=== PATIENT | male | born 1955 | race Caucasian/White ===

== ENCOUNTER 2017-06-04 19:44 | Inpatient (IN) | payer BC ==
[~2017-06-04] VITALS: Ht 172.7 cm; Wt 105.6 kg
[2017-06-04 20:53] LABS: HEMATOCRIT 39.7 % (38.0-50.0); MCH 30.1 PG (29.0-34.0); MCHC 34.8 G/DL (30.0-36.0); MCV 86.5 FL (86-99); MEAN PLAT.VOLUME 9.2 uM^3 (9.0-12.4); PLATELET COUNT 156 K/uL (156-360); RBC DIS.WIDTH-CV 12.5 % (11.8-14.6); RBC DIS.WIDTH-SD 39.4 % (39-53); RED BLOOD COUNT 4.59 M/uL (4.00-5.50); WHITE BLOOD COUNT 18.7 K/uL (4.1-10.2)
[2017-06-04 21:12] LABS: CHLORIDE 110 mEq/L (99-109); POTASSIUM 3.9 mEq/L (3.7-5.4); SODIUM 141 mEq/L (136-147)
[2017-06-04 21:14] LABS: GLUCOSE 132 mg/dL (70-99)
[2017-06-04 21:15] LABS: ANION GAP 10 MEQ/L (2-14)
[2017-06-04 21:17] LABS: ALKALINE PHOSPHATASE 88 IU/L (3-129)
[2017-06-04 21:18] LABS: GFR ESTIMATE (CALCULATED) > 59 mL/min/
[2017-06-04 21:21] LABS: LIPASE 9 U/L (1.0-51.0)
[2017-06-04 21:55] LABS: UREA NITROGEN (BUN) 20 mg/dL (9-23)
[2017-06-04 21:56] LABS: ADD MIUA? YES; BILIRUBIN NEGATIVE; BLOOD SMALL; COLOR YELLOW ((YELLOW)); GLUCOSE (STRIP) NEGATIVE; KETONES NEGATIVE; LEUKOCYTES NEGATIVE; NITRITE NEGATIVE; PROTEIN (STRIP) NEGATIVE; SPECIFIC GRAVITY 1.018 (1.000-1.030); UROBILINOGEN 0.2 MG/DL (0.2-1.0)
[2017-06-04 21:59] LABS: BACTERIA NONE SEEN /HPF; EPITHELIAL CELLS NONE SEEN /HPF; MUCUS TRACE /LPF; UCUL ADDED? NO; WHITE BLOOD CELLS 0-5 /HPF (0-5)
[2017-06-04] MEDS ORDERED: ATORVASTATIN CA20 MG PO (23:17)
[2017-06-04] MEDS ORDERED: OMEPRAZOLE-BIC1 EAC1 PO (23:17)
[2017-06-04] MEDS ORDERED: DESLORATADINE5 MG PO (23:18)
[2017-06-04] MEDS ORDERED: GLUCOSAMINE &1 EAC1 PO (23:19)
[2017-06-04] MEDS ORDERED: FLAX SEED OIL1 EACH PO (23:19)
[2017-06-04] MEDS ORDERED: ADVIL200 MG PO (23:20)
[2017-06-04] MEDS ORDERED: LO-DOSE ASPIRIN81 M2 PO (23:20)
[2017-06-05 01:04] VITALS: BP 139/76
[2017-06-05 01:22] LABS: BAND NEUTROPHILS 1.7 % (0-8.0); LYMPHOCYTES 2.6 % (15.0-45.0); PLAT.SUFFICIENCY ADEQUATE; SEG.NEUTROPHILS 95.7 % (46.0-76.0)
[2017-06-05 06:10] LABS: EOSINOPHIL (%) 0.1 % (0-5); HEMATOCRIT 36.8 % (38.0-50.0); IMMATURE GRANULOCYTE (%) 0.9 % (0.0-0.7); IMMATURE GRANULOCYTE COUNT 0.2 K/uL; INSTRUMENT ABS NEUTROPHIL CT 16.2 K/uL; MCHC 35.3 G/DL (30.0-36.0); MCV 87.8 FL (86-99); MEAN PLAT.VOLUME 9.7 uM^3 (9.0-12.4); MONOCYTE (%) 4.9 % (3-12); MONOCYTE COUNT 0.9 K/uL (0-0.8); NEUTROPHIL (%) 88.3 % (45-76); NEUTROPHIL COUNT 16.2 K/uL (1.8-6.4); PLATELET COUNT 147 K/uL (156-360); RBC DIS.WIDTH-SD 41.6 % (39-53); RED BLOOD COUNT 4.19 M/uL (4.00-5.50); WHITE BLOOD COUNT 18.3 K/uL (4.1-10.2)
[2017-06-05 06:42] LABS: ANION GAP 6 MEQ/L (2-14); CHLORIDE 111 MEQ/L (99-109); GFR ESTIMATE (CALCULATED) > 59 mL/min/; GLUCOSE 102 mg/dL (70-99); SAMPLE HEMOLYSIS CHECK 0; SAMPLE ICTERIC CHECK 0; SAMPLE LIPEMIA CHECK 0; SODIUM 142 MEQ/L (136-147); UREA NITROGEN (BUN) 16 mg/dL (9-23)
[2017-06-05 07:30] VITALS: BP 130/68
[2017-06-05 09:30] VITALS: BP 134/76
[2017-06-05 16:39] VITALS: BP 153/80
[2017-06-05 19:05] VITALS: BP 144/92
[2017-06-06] VITALS (7 sets, daily range): BP systolic 138–157; BP diastolic 71–91
[2017-06-06 05:55] LABS: HEMATOCRIT 36.1 % (38.0-50.0); MCH 30.8 PG (29.0-34.0); MCHC 34.1 G/DL (30.0-36.0); MCV 90.5 FL (86-99); PLATELET COUNT 138 K/uL (156-360); RBC DIS.WIDTH-CV 13.1 % (11.8-14.6); RBC DIS.WIDTH-SD 43.8 % (39-53); RED BLOOD COUNT 3.99 M/uL (4.00-5.50); WHITE BLOOD COUNT 10.5 K/uL (4.1-10.2)
[2017-06-06 06:39] LABS: ANION GAP 10 MEQ/L (2-14); CHLORIDE 107 MEQ/L (99-109); GFR ESTIMATE (CALCULATED) > 59 mL/min/; GLUCOSE 115 mg/dL (70-99); POTASSIUM 4.3 MEQ/L (3.7-5.4); SAMPLE HEMOLYSIS CHECK 0; SAMPLE ICTERIC CHECK 0; SAMPLE LIPEMIA CHECK 0; SODIUM 138 MEQ/L (136-147); UREA NITROGEN (BUN) 17 mg/dL (9-23)
[2017-06-07 01:21] VITALS: BP 142/90
[2017-06-07 04:13] VITALS: BP 142/80
[2017-06-07 07:20] VITALS: BP 150/88
[2017-06-07 12:00] VITALS: BP 160/90
[2017-06-07 15:00] VITALS: BP 140/78
[2017-06-07 19:46] VITALS: BP 171/85
[2017-06-08 00:20] VITALS: BP 132/64
[2017-06-08 04:33] VITALS: BP 116/64
[2017-06-08 05:40] LABS: HEMATOCRIT 32.3 % (38.0-50.0); MCH 30.2 PG (29.0-34.0); MCHC 34.7 G/DL (30.0-36.0); MCV 87.1 FL (86-99); MEAN PLAT.VOLUME 10.2 uM^3 (9.0-12.4); PLATELET COUNT 183 K/uL (156-360); RBC DIS.WIDTH-CV 12.7 % (11.8-14.6); RBC DIS.WIDTH-SD 40.3 % (39-53); RED BLOOD COUNT 3.71 M/uL (4.00-5.50); WHITE BLOOD COUNT 12.8 K/uL (4.1-10.2)
[2017-06-08 05:57] LABS: ANION GAP 13 MEQ/L (2-14); CHLORIDE 106 MEQ/L (99-109); GFR ESTIMATE (CALCULATED) > 59 mL/min/; GLUCOSE 91 mg/dL (70-99); POTASSIUM 3.5 MEQ/L (3.7-5.4); SAMPLE HEMOLYSIS CHECK 0; SAMPLE ICTERIC CHECK 0; SAMPLE LIPEMIA CHECK 0; SODIUM 139 MEQ/L (136-147); UREA NITROGEN (BUN) 14 mg/dL (9-23)
[2017-06-08 08:00] VITALS: BP 153/92
[2017-06-08 12:00] VITALS: BP 162/92
[2017-06-08 16:12] VITALS: BP 140/83
[2017-06-08 20:05] VITALS: BP 169/90
[2017-06-09 00:19] VITALS: BP 139/84
[2017-06-09 05:05] LABS: MCH 29.7 PG (29.0-34.0); MCHC 34.1 G/DL (30.0-36.0); MCV 87.2 FL (86-99); MEAN PLAT.VOLUME 9.2 uM^3 (9.0-12.4); PLATELET COUNT 199 K/uL (156-360); RBC DIS.WIDTH-CV 12.8 % (11.8-14.6); RED BLOOD COUNT 3.67 M/uL (4.00-5.50); WHITE BLOOD COUNT 11.1 K/uL (4.1-10.2)
[2017-06-09 05:21] VITALS: BP 142/85
[2017-06-09 06:02] LABS: ANION GAP 10 MEQ/L (2-14); CHLORIDE 108 MEQ/L (99-109); GFR ESTIMATE (CALCULATED) > 59 mL/min/; GLUCOSE 84 mg/dL (70-99); POTASSIUM 3.7 MEQ/L (3.7-5.4); SAMPLE HEMOLYSIS CHECK 0; SAMPLE ICTERIC CHECK 0; SAMPLE LIPEMIA CHECK 0; SODIUM 141 MEQ/L (136-147); UREA NITROGEN (BUN) 16 mg/dL (9-23)
[2017-06-09 07:25] VITALS: BP 141/88
[2017-06-09 15:00] VITALS: BP 138/86
[2017-06-09 20:50] VITALS: BP 149/84
[2017-06-10] VITALS: BP 145/81
[2017-06-10 05:12] VITALS: BP 142/82
[2017-06-10 07:20] VITALS: BP 155/82
[2017-06-10 19:10] VITALS: BP 137/81
[2017-06-11] VITALS (7 sets, daily range): BP systolic 55–155; BP diastolic 67–83
[2017-06-11 06:02] LABS: HEMATOCRIT 30.1 % (38.0-50.0); MCH 29.9 PG (29.0-34.0); MCHC 34.2 G/DL (30.0-36.0); MCV 87.5 FL (86-99); MEAN PLAT.VOLUME 9.1 uM^3 (9.0-12.4); PLATELET COUNT 247 K/uL (156-360); RBC DIS.WIDTH-CV 12.9 % (11.8-14.6); RED BLOOD COUNT 3.44 M/uL (4.00-5.50); WHITE BLOOD COUNT 10.5 K/uL (4.1-10.2)
[2017-06-11 06:25] LABS: ANION GAP 5 MEQ/L (2-14); CHLORIDE 106 MEQ/L (99-109); GFR ESTIMATE (CALCULATED) > 59 mL/min/; GLUCOSE 99 mg/dL (70-99); POTASSIUM 3.6 MEQ/L (3.7-5.4); SAMPLE HEMOLYSIS CHECK 0; SAMPLE ICTERIC CHECK 0; SAMPLE LIPEMIA CHECK 0; SODIUM 140 MEQ/L (136-147); UREA NITROGEN (BUN) 12 mg/dL (9-23)
[2017-06-12 07:01] VITALS: BP 141/80
[2017-06-12 11:15] VITALS: BP 135/76
[2017-06-12 15:50] VITALS: BP 157/86
[2017-06-12 23:37] VITALS: BP 155/86
[2017-06-13 07:14] LABS: EOSINOPHIL (%) 4.5 % (0-5); EOSINOPHIL COUNT 0.5 K/uL (0-0.3); HEMATOCRIT 31.1 % (38.0-50.0); IMMATURE GRANULOCYTE (%) 1.9 % (0.0-0.7); IMMATURE GRANULOCYTE COUNT 0.2 K/uL; INSTRUMENT ABS NEUTROPHIL CT 7.2 K/uL; LYMPHOCYTE COUNT 1.3 K/uL (1.0-2.8); MCH 29.5 PG (29.0-34.0); MCHC 33.1 G/DL (30.0-36.0); MCV 89.1 FL (86-99); MEAN PLAT.VOLUME 8.7 uM^3 (9.0-12.4); MONOCYTE (%) 7.5 % (3-12); MONOCYTE COUNT 0.8 K/uL (0-0.8); NEUTROPHIL (%) 72.6 % (45-76); NEUTROPHIL COUNT 7.2 K/uL (1.8-6.4); PLATELET COUNT 324 K/uL (156-360); RBC DIS.WIDTH-CV 13.1 % (11.8-14.6); RBC DIS.WIDTH-SD 42.4 % (39-53); RED BLOOD COUNT 3.49 M/uL (4.00-5.50)
[2017-06-13 07:40] VITALS: BP 150/78
[2017-06-13 16:19] VITALS: BP 150/78
[2017-06-13] MEDS ORDERED: DOCUSATE SODIU100 MG PO (19:40)
[2017-06-13] MEDS ORDERED: HYDROCODON-ACE1 EAC7 PO (19:40)
[2017-06-13 23:41] VITALS: BP 140/77
[2017-06-14 07:17] VITALS: BP 134/85
== END 2017-06-14 14:26 | disposition home health service (06) | DRG 329 ==
LOC: EME 19:44 → EDOF 06-05 00:10 → 4EAST 06-05 00:10 → ENRESERV 06-05 00:12 → 4EAST 06-05 00:52 → ENRESERV 06-08 18:20 → 2EAST 06-11 22:55
PROVIDERS: Emergency Medicine; Surgery; Thoracic Surgery (Cardiothoracic Vascular Surgery)
DX: K52.9 Noninfective gastroenteritis and colitis, unspecified (principal); K63.1 Perforation of intestine (nontraumatic); E78.5 Hyperlipidemia, unspecified; K21.9 Gastro-esophageal reflux disease without esophagitis; E66.9 Obesity, unspecified; Z68.35 Body mass index [BMI] 35.0-35.9, adult
CPT/HCPCS: 71010; 74177; 80048; 80053; 81003; 83605; 83690; 85007; 85025; 85027; 88302; 88307; 93005; 93970; 94799; 97530 GO; 97530 GP; 99281; 99285; J0131; J0330; J1100; J1170; J1650; J1885; J2250; J2270; J2405; J2543; J2710; J3010; J7030; J7050; J7120; S0028

== ENCOUNTER 2018-03-15 22:20 | Inpatient (IN) | payer BC ==
[~2018-03-15] VITALS: Ht 170.2 cm; Wt 88.4 kg
[~2018-03-15 22:20] MED LIST: ADVIL200 MG PO; ATORVASTATIN CA20 MG PO; DESLORATADINE5 MG PO; DOCUSATE SODIU100 MG PO; ERY-TAB500 MG PO; FLAX SEED OIL1 EACH PO; GLUCOSAMINE &1 EAC1 PO; HYDROCODON-ACE1 EAC7 PO; LO-DOSE ASPIRIN81 M2 PO; MEN'S MULTI-VI1 EACH PO; MIRALAX119 GM PO; NEOMYCIN SULFA500 MG PO; OMEPRAZOLE-BIC1 EAC1 PO; PROBIOTIC1 EAC5 PO; WELLBUTRIN XL150 MG PO
[2018-03-16 07:00] VITALS: BP 139/76
[2018-03-16 08:02] LABS: INTER. NORMALIZED RATIO 1.1
[2018-03-16 08:05] LABS: PTT 26.7 SEC (25-37)
[2018-03-16 16:33] VITALS: BP 118/62
[2018-03-16 20:11] VITALS: BP 131/80
[2018-03-17] VITALS (7 sets, daily range): BP systolic 130–146; BP diastolic 69–89
[2018-03-17 06:21] LABS: HEMATOCRIT 38.5 % (38.0-50.0); HEMOGLOBIN 13.1 G/DL (12.5-16.6); MCH 30.5 PG (29.0-34.0); MCV 89.7 FL (86-99); PLATELET COUNT 176 K/uL (156-360); RBC DIS.WIDTH-CV 12.8 % (11.8-14.6); RBC DIS.WIDTH-SD 41.9 % (39-53); RED BLOOD COUNT 4.29 M/uL (4.00-5.50); WHITE BLOOD COUNT 12.4 K/uL (4.1-10.2)
[2018-03-17 06:47] LABS: CHLORIDE 106 MEQ/L (99-109); CREATININE 1.1 MG/DL (0.6-1.3); GFR ESTIMATE (CALCULATED) > 59 mL/min/ (58.99-99999); GLUCOSE 103 mg/dL (70-99); POTASSIUM 4.6 MEQ/L (3.7-5.4); SODIUM 140 MEQ/L (136-147); UREA NITROGEN (BUN) 18 mg/dL (9-23)
[2018-03-18 03:58] VITALS: BP 130/84
[2018-03-18 06:31] LABS: HEMATOCRIT 38.7 % (38.0-50.0); HEMOGLOBIN 12.8 G/DL (12.5-16.6); MCHC 33.1 G/DL (30.0-36.0); MCV 90.6 FL (86-99); PLATELET COUNT 169 K/uL (156-360); RBC DIS.WIDTH-CV 12.7 % (11.8-14.6); RBC DIS.WIDTH-SD 42.2 % (39-53); RED BLOOD COUNT 4.27 M/uL (4.00-5.50); WHITE BLOOD COUNT 11.1 K/uL (4.1-10.2)
[2018-03-18 06:58] LABS: CHLORIDE 105 MEQ/L (99-109); CREATININE 0.9 MG/DL (0.6-1.3); GFR ESTIMATE (CALCULATED) > 59 mL/min/ (58.99-99999); GLUCOSE 83 mg/dL (70-99); SODIUM 139 MEQ/L (136-147); UREA NITROGEN (BUN) 14 mg/dL (9-23)
[2018-03-18 07:00] VITALS: BP 123/73
[2018-03-18 11:16] VITALS: BP 121/74
[2018-03-18 15:40] VITALS: BP 128/77
[2018-03-18 19:04] VITALS: BP 131/73
[2018-03-18 22:45] VITALS: BP 144/81
[2018-03-19 03:17] VITALS: BP 126/77
[2018-03-19 05:51] LABS: HEMATOCRIT 34.3 % (38.0-50.0); HEMOGLOBIN 11.9 G/DL (12.5-16.6); MCH 31.2 PG (29.0-34.0); MCHC 34.7 G/DL (30.0-36.0); MCV 89.8 FL (86-99); PLATELET COUNT 138 K/uL (156-360); RBC DIS.WIDTH-CV 12.5 % (11.8-14.6); RBC DIS.WIDTH-SD 41.1 % (39-53); RED BLOOD COUNT 3.82 M/uL (4.00-5.50); WHITE BLOOD COUNT 7.7 K/uL (4.1-10.2)
[2018-03-19 06:18] LABS: CHLORIDE 106 MEQ/L (99-109); CREATININE 0.9 MG/DL (0.6-1.3); GFR ESTIMATE (CALCULATED) > 59 mL/min/ (58.99-99999); GLUCOSE 72 mg/dL (70-99); MAGNESIUM 1.6 mg/dl (1.3-2.7); PHOSPHORUS 2.6 mg/dL (2.5-4.9); POTASSIUM 4.1 MEQ/L (3.7-5.4); SODIUM 139 MEQ/L (136-147); UREA NITROGEN (BUN) 14 mg/dL (9-23)
[2018-03-19 07:28] VITALS: BP 126/72
[2018-03-19 11:05] VITALS: BP 134/82
[2018-03-19 15:30] VITALS: BP 121/79
[2018-03-19 19:53] VITALS: BP 127/79
[2018-03-20] VITALS (7 sets, daily range): BP systolic 125–156; BP diastolic 73–96
[2018-03-21 03:07] VITALS: BP 140/87
[2018-03-21 05:57] LABS: HEMATOCRIT 37.5 % (38.0-50.0); HEMOGLOBIN 12.7 G/DL (12.5-16.6); MCH 30.2 PG (29.0-34.0); MCHC 33.9 G/DL (30.0-36.0); MCV 89.1 FL (86-99); RBC DIS.WIDTH-CV 12.4 % (11.8-14.6); RBC DIS.WIDTH-SD 40.5 % (39-53); RED BLOOD COUNT 4.21 M/uL (4.00-5.50); WHITE BLOOD COUNT 9.3 K/uL (4.1-10.2)
[2018-03-21 06:07] LABS: PLATELET COUNT 238 K/uL (156-360)
[2018-03-21 07:37] VITALS: BP 140/89
[2018-03-21 10:09] LABS: CHLORIDE 105 MEQ/L (99-109); GFR ESTIMATE (CALCULATED) > 59 mL/min/ (58.99-99999); MAGNESIUM 1.8 mg/dl (1.3-2.7); POTASSIUM 4.2 MEQ/L (3.7-5.4); SODIUM 140 MEQ/L (136-147); UREA NITROGEN (BUN) 13 mg/dL (9-23)
[2018-03-21 10:11] LABS: GLUCOSE 91 mg/dL (70-99)
[2018-03-21 11:28] VITALS: BP 128/82
[2018-03-21 15:30] VITALS: BP 121/72
[2018-03-21 18:57] VITALS: BP 121/76
[2018-03-21 23:12] VITALS: BP 138/86
[2018-03-22 03:36] VITALS: BP 128/78
[2018-03-22 07:22] VITALS: BP 116/7; BP 116/72
[2018-03-22 11:18] VITALS: BP 124/71
[2018-03-22 16:29] VITALS: BP 119/73
[2018-03-22] MEDS ORDERED: HYDROCODON-ACE1 EAC7 PO (19:29)
[2018-03-22 20:12] VITALS: BP 121/78
== END 2018-03-22 20:35 | disposition home or self-care (01) | DRG 337 ==
LOC: ENRESERV 22:20 → 2SOUTH 03-16 06:14 → ENRESERV 03-16 09:50 → SDC 03-16 10:08 → EDSTATUS 03-16 10:15 → 2SOUTH 03-16 10:20 → 5EAST 03-16 15:10 → 2SOUTH 03-16 15:11 → 5EAST 03-22 20:35
PROVIDERS: Surgery; Thoracic Surgery (Cardiothoracic Vascular Surgery)
DX: Z43.3 Encounter for attention to colostomy (principal); K66.0 Peritoneal adhesions (postprocedural) (postinfection); N40.0 Benign prostatic hyperplasia without lower urinary tract symptoms; M19.90 Unspecified osteoarthritis, unspecified site; E78.5 Hyperlipidemia, unspecified; K21.9 Gastro-esophageal reflux disease without esophagitis; D64.9 Anemia, unspecified; H26.9 Unspecified cataract; Z82.49 Family history of ischemic heart disease and other diseases of the circulatory system
CPT/HCPCS: 80048; 82948; 83735; 84100; 85027; 85610; 85730; 86850; 86900; 86901; 88304; J0690; J1100; J1170; J1335; J1650; J1885; J2250; J2405; J2543; J2710; J3010; J7050; J7120; J7643; Q0175; S0028